=== PATIENT | male | born 1945 | race Caucasian/White ===

== ENCOUNTER 2018-10-04 15:56 | Emergency (ER) | payer MEDICARE ==
[2018-10-04] MEDS ORDERED: LIDOCAINE 1%/EPI (1:100,000) (MDV) 20 ML INJ (16:30)
[2018-10-04] MEDS: LIDOCAINE 1%/EPI 30 ML INJ INJ (17:00)
[2018-10-04] MEDS: ACETAMINOPHEN 325 MG TAB PO (19:00)
== END 2018-10-04 19:22 | disposition home or self-care (01) ==
LOC: E/R 15:56
DX: S01.01XA Laceration without foreign body of scalp, initial encounter (principal); E11.9 Type 2 diabetes mellitus without complications; I10 Essential (primary) hypertension; V77.6XXA Passenger on bus injured in collision with fixed or stationary object in traffic accident, initial encounter; Z79.84 Long term (current) use of oral hypoglycemic drugs
CPT/HCPCS: 12001; 70450; 82962; 99284-25

== ENCOUNTER 2018-10-08 11:07 | Emergency (ER) | payer MEDICARE, OTHER | END 2018-10-08 12:23 | disposition home or self-care (01) | LOC: FTE 11:07 | DX: S01.01XD Laceration without foreign body of scalp, subsequent encounter (principal); I10 Essential (primary) hypertension; E11.9 Type 2 diabetes mellitus without complications; V89.2XXD Person injured in unspecified motor-vehicle accident, traffic, subsequent encounter; Z79.84 Long term (current) use of oral hypoglycemic drugs | CPT/HCPCS: 99281 ==